=== PATIENT | female | born 1970 | race Caucasian/White ===

== ENCOUNTER 2024-02-10 17:00 | Emergency (ER) | payer BC, SELFPAY ==
[2024-02-10 17:11] VITALS: BP 141/89
--- NOTE | 2024-02-10 17:14 | ED.GENMED ---
ED Provider Triage
<Do Trimble BOROUGH COORDINATOR - Last Filed: 02/10/24 17:22>
-
Patient seen by provider in Triage?: Seen in Triage
Attestation: A medical screening examination has been initiated by a qualified medical provider. Based on the assessment performed at this time, it has been determined that an emergent medical condition may exist and the patient has been informed
that further medical evaluation and possible additional diagnostic testing may be needed.
HPI: 53 yo female here for SOB and tightness across upper abdomen, 'trouble breathing' past 3 days off and on, thought it was her GERD, or muscle tightness, today still no relief so here for eval.
Takes Omeprazole daily, took Gasex on way here.
On Estrogen patch, Merena IUD.
GENERAL: Alert , in no apparent distress
EYE: No visual abnormalities.
ENT: No visible abnormalities.
LUNGS: No acute respiratory distress
NEUROLOGICAL: Alert and oriented
SKIN: Skin intact. No visible changes.
MUSCULOSKELETAL: Moving extremities normally
PSYCH: Normal and appropriate interaction.
This is a medical evaluation conducted in person to initiate diagnostic evaluation and provide initial therapeutics. Please see further documentation by the treating clinician.
History of Present Illness
<oD Trimble BOROUGH COORDINATOR - Last Filed: 02/10/24 17:22>
General
Chief Complaint: Breathing Problem
Time Seen by Provider: 02/10/24 21:23
<Katy Hobbs PA-C - Last Filed: 02/12/24 23:04>
General
Source: patient
Exam Limitations: none
History of Present Illness
History of Present Illness:
pt is a 53 y/o F
h/o GERD, chroinc upper abd tightness/resp issues post abdominal surgeries (proph double mastiectomy with reconstruction, bilateral salpingoophrectomy and also a ureter surgery)
on oral estrogen replacement
has hd 3 episodes of dyspnea and feeling of tightness around her upper abdomen/torso which she has had previously in relation to her 'tight abdominal muscles' and her breast recontrution
but it did make her a little more concerned that her shortness of breath was more prominent so she came in after tonights episode.
The other episodes happened several days ago. She currently does not feel any symptoms of shortness of breath but on arrival to the triage nurse she did states she had some shortness of breath and chest pain. To me she says she had never had any
chest pain. She was aware that she felt like she had restricted breathing. She has not had any recent DVT or PE risk factors. She is on an oral hormone replacement estrogen therapy. Patient has no risk factors for coronary artery disease.
She initially was very anxious on arrival but now feels much better. Her heart rate is improved. She has not had any fever or cough, leg swelling, nausea or vomiting. Patient does have significant GERD symptoms and she thinks this may be the
trigger for her symptoms, as she often times feels it in her throat like a burning sensation or a warmth in her throat in addition to these other symptoms. Patient had alcohol few days ago which she does not normally drink
Past History
<Do Trimble BOROUGH COORDINATOR - Last Filed: 02/10/24 17:22>
Past History
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
ED Past Surgical History: Gynecological (Laparoscopic ovarian and fallopian tube removal February 2016) and Urological (Right ureteral obstruction repair)
Social History
Tobacco: Non-smoker
Alcohol: Occasional
Drug: None
Personal:
Living: with family
Review of Systems
<Katy Hobbs PA-C - Last Filed: 02/12/24 23:04>
Review of Systems
Allergies reviewed?: Yes
All Other Systems: Not applicable
Phy Exam
<Katy Hobbs PA-C - Last Filed: 02/12/24 23:04>
Physical Exam
Physical Exam:
GENERAL: Alert patient does seem mildly anxious
EYE: pupils equal and reactive
NECK: Supple
ENT: o/p clr, mmm.
CARDIAC: Regular rate and rhythm . Heart rate initially was in the 100s, it is 80s now, there is no murmur appreciated
LUNGS: Clear breath sounds bilaterally, no acute respiratory distress, no wheezes/rales/rhonchi, patient has no splinting, she seems to take deep breaths
ABDOMEN: Soft, without focal tenderness, no r/g, no cvat, normal bowel sounds, she has no upper abdominal tenderness
NEUROLOGICAL: Alert and oriented, no focal neuro deficits
SKIN: Warm and dry, skin intact.
MUSCULOSKELETAL: No edema, well perfused. neg amy's sign
PSYCH: Normal and appropriate interaction.
Scores
<Katy Hobbs PA-C - Last Filed: 02/12/24 23:04>
Heart Failure Risk
Heart Failure Risk Score: Not Applicable
Course
<Do Trimble NP - Last Filed: 02/10/24 17:22>
Orders/Labs/Results
Orders:
Orders
02/10/24 17:01
ECG [Electrocardiogram (*1)] Urgent
Reason for Study: Abdominal Pain
EKG- Treatment ONCE
02/10/24 17:24
Complete Blood Count/With Diff Urgent
Comprehensive Metabolic Panel Urgent
D-Dimer Urgent
02/10/24 21:58
Bladder Scan- Treatment ONCE
02/10/24 22:10
Urinalysis Reflex To Culture Urgent
Date Specimen was Collected: 02/10/24
Time Specimen was Collected: 22:09
02/10/24 22:41
Mag Hydrox/Al Hydrox/Simeth [Maalox] 30 ml PO NOW STA
02/10/24 22:53
Troponin I Urgent
Abnormal Lab Results
02/10/24
17:24
Glucose 134 H mg/dl
(70-99)
Albumin 5.2 H g/dl
(3.5-5.0)
02/10/24 17:24
02/10/24 17:24
Vital Signs
Initial and Last Documented VS:
Initial Vital Signs
Temp Pulse Resp BP Pulse Ox
98.1 F 118 20 141/89 100
02/10/24 17:11 02/10/24 17:11 02/10/24 17:11 02/10/24 17:11 02/10/24 17:11
Last Documented Vital Signs
Temp Pulse Resp BP Pulse Ox
98.1 F 84 21 126/89 100
02/10/24 17:11 02/10/24 22:39 02/10/24 22:39 02/10/24 22:23 02/10/24 22:39
<Katy Hobbs PA-C - Last Filed: 02/12/24 23:04>
Orders/Labs/Results
Orders:
Orders
02/10/24 17:01
ECG [Electrocardiogram (*1)] Urgent
Reason for Study: Abdominal Pain
EKG- Treatment ONCE
02/10/24 17:24
Complete Blood Count/With Diff Urgent
Comprehensive Metabolic Panel Urgent
D-Dimer Urgent
02/10/24 21:58
Bladder Scan- Treatment ONCE
02/10/24 22:10
Urinalysis Reflex To Culture Urgent
Date Specimen was Collected: 02/10/24
Time Specimen was Collected: 22:09
02/10/24 22:41
Mag Hydrox/Al Hydrox/Simeth [Maalox] 30 ml PO NOW STA
02/10/24 22:53
Troponin I Urgent
Abnormal Lab Results
02/10/24
17:24
Glucose 134 H mg/dl
(70-99)
Albumin 5.2 H g/dl
(3.5-5.0)
02/10/24 17:24
02/10/24 17:24
Vital Signs
Initial and Last Documented VS:
Initial Vital Signs
Temp Pulse Resp BP Pulse Ox
98.1 F 118 20 141/89 100
02/10/24 17:11 02/10/24 17:11 02/10/24 17:11 02/10/24 17:11 02/10/24 17:11
Last Documented Vital Signs
Temp Pulse Resp BP Pulse Ox
98.1 F 84 21 126/89 100
02/10/24 17:11 02/10/24 22:39 02/10/24 22:39 02/10/24 22:23 02/10/24 22:39
<Katy Hobbs PA-C - Last Filed: 02/12/24 23:04>
MDM/Problems Addressed
Differential Diagnosis Includes:
PE, GERD, anxiety, musculoskeletal pain
MDM/Problems Addressed:
53-year-old female on oral estrogen therapy, with GERD, concerns for shortness of breath and episodes over the last several days lasting few minutes to an hour at a time feeling tight in her upper abdomen and chest, also some burning in her throat
which he thought was GERD. Patient says after the third episode today she felt like she is to get checked out. She does have a significant amount of anxiety in regards to her health. She has no coronary artery disease risk factors. She does
appear anxious and initially was tachycardic but no longer is tachycardic. She is not hypoxic.
Her lungs are clear, her abdomen is soft and nontender.
Patient's EKG is reassuring and nonischemic, she is in normal sinus rhythm. Her D-dimer was negative. She is on an oral estrogen and we did discuss the possibility of DVT or PE causing the symptoms. Patient is feeling reassured and would prefer
not to have imaging unless necessary. I discussed this case with ED attending Dr. Alejo
Given her tachycardia improving, pulse ox of 100%, no longer having symptoms do not feel a steroid to pursue a PE at this time although I would recommend she return for recurrent symptoms or persistent symptoms. I did add on a troponin to
effectively do a rule out which was negative.
Patient does believe she has GERD symptoms and I think dyspepsia is causing her anxiety. She was given a dose of Maalox. Discharged home
<Katy Hobbs PA-C - Last Filed: 02/12/24 23:04>
*Critical Care Note
Total Time (30-74mins, 75-104mins- exclusive of procedures): Not Applicable
ED Attending Note
<Do Trimble NP - Last Filed: 02/10/24 17:22>
-
Portions of this chart may have been created with voice recognition software.� Occasional wrong word or��sound alike� substitutions may have occurred due to the inherent limitations of voice recognition software.
Discharge Plan
Departure
Patient Disposition: Home (Routine Discharge)
Date of Disposition: 02/10/24
Time of Disposition: 23:47
Patient with high blood pressure during this ER visit?: No
Condition: Fair
Covid-19: Not Applicable
Discharge Problem:
Shortness of breath, History of gastroesophageal reflux (GERD)
Instructions: Shortness of Breath (Dyspnea) (DC)
Prescriptions:
No Action
multivitamin [Daily Multiple] 1 EACH tablet
1 ea PO DAILY
esomeprazole magnesium [Nexium] 40 MG capsule,delayed release(DR/EC)
40 mg PO DAILY
diclofenac sodium 75 MG tablet,delayed release (DR/EC)
75 mg PO BID Qty: 10 0RF
Referrals:
UNKNOWN - PT DOES,NOT KNOW [Unknown Provider] -
Activity Restrictions/Additional Instructions:
WE ARE NOT EXACTLY SURE THE CAUSE OF YOUR SYPMTOMS BUT YOUR BLOOD WORK WAS REASSURING, YOUR EKG DID NOT SHOW ANY CONCERNING ABNORMALITIES. THIS COULD BE YOUR ACID REFLUX IN COMBINATION WITH YOUR CHRONIC MUSCLE TIGHTENING IN YOUR ABDOMEN - WELL
ANXIETY
TRY MAALOX 2-3 TIMES A DAY FOR SYMPTOMS WORSE WITH EATING ETC
RETURN FOR : WORSE SHORTNESS OF BREATH, PERSISTENT ANXIETY/ELEVATED HEART RATE, CHEST PAIN, SEVERE SYMPTMOMS OR ANY CONCERNS.
Interventions
Interventions:
*Risk Screen - Suicide Last Done: 02/10/24 17:11
*General Assessment Last Done: 02/10/24 17:11
*Neglect/Abuse Screening Last Done: 02/10/24 17:11
ED- Fall Risk Assessment Last Done: 02/10/24 22:12
*ED COVID-19 Vaccine History Last Done: 02/10/24 23:54
*Nursing Disposition Last Done: 02/11/24 00:08
ED- Cardiac Assessment Last Done: 02/10/24 22:12
ED- Pulmonary Assessment Last Done: 02/10/24 22:12
Discharge Date and Time
Discharge Date/Time: 02/11/24 00:09
Print Language: CROATIAN
[2024-02-10 17:33] LABS: % Basophils 0.5 % (0-2); % Immature Granulocytes 0.1 % (0-0.5); % Monocytes 5.8 % (1.7-9.3); % Neutrophils 65.6 % (42.2-75.2); Absolute Eosinophils 0.1 10^3/uL (0-0.7); Absolute Monocytes 0.4 10^3/uL (0.1-0.6); Absolute Neutrophils 4.8 10^3/uL (1.4-6.5); Hematocrit 42.6 % (37.0-47.0); Hemoglobin 14.9 g/dL (12.0-16.0); Mean Corpuscular Hgb 30.7 pg (27.0-31.0); Mean Corpuscular Volume 87.8 fL (81.0-99.0); Mean Platelet Volume 9.6 fL (7.4-10.4); Nucleated Red Blood Cells % 0 %; Platelet Count 280 10^3/uL (130-400); Red Blood Cell Count 4.85 10^6/uL (4.20-5.40); Red Cell Dist. Width 13.1 % (11.5-14.5); White Blood Cell Count 7.4 10^3/uL (4.8-10.8)
[2024-02-10 17:46] LABS: D-Dimer 0.42 ug/mlFEU (0.00-0.50)
[2024-02-10 17:47] LABS: ALT (SGPT) 22 U/L (0-35); AST (SGOT) 25 U/L (14-36); Albumin 5.2 g/dl (3.5-5.0); Alkaline Phosphatase 51 U/L (38-126); Blood Urea Nitrogen 16 mg/dl (7-17); Calcium 10.2 mg/dl (8.4-10.2); Carbon Dioxide 23 mmol/L (22-30); Chloride 102 mmol/L (98-107); Glucose 134 mg/dl (70-99); Potassium 3.8 mmol/L (3.5-5.1); Sodium 142 mmol/L (135-145); Total Bilirubin 0.4 mg/dl (0.2-1.3); eGFR > 60.00
[2024-02-10 22:23] VITALS: BP 126/89
[2024-02-10 22:35] LABS: Urine Albumin Negative (Neg - Trace); Urine Bilirubin Negative (Negative); Urine Character Clear (Clear); Urine Color Yellow; Urine Glucose Negative (Negative); Urine Ketone Negative (Negative); Urine Leukocyte Negative (Negative); Urine Nitrite Negative (Negative); Urine Occult Blood Negative (Negative); Urine Specific Gravity 1.005 (<1.030); Urine Urobilinogen Negative (Neg - 1+)
[2024-02-10] MEDS: MAALOX 30 ML PO (22:48)
[2024-02-10 23:32] LABS: Troponin I < 0.012 ng/ml
== END 2024-02-11 00:09 | disposition home or self-care (01) ==
LOC: EMR 17:00
PROVIDERS: Physician Assistant; Registered Nurse; EMERGENCY PHYSICIAN Emergency Medicine; FAMILY PHYSICIAN Family Medicine
DX: R06.02 Shortness of breath (principal); K21.9 Gastro-esophageal reflux disease without esophagitis
CPT/HCPCS: 99284; 80053; 81003; 84484; 85025; 85379; 93005